=== PATIENT | female | born 1950 | race Caucasian/White ===

== ENCOUNTER 2021-03-18 21:06 | Emergency (ER) | payer OTHER, MEDICAID ==
[~2021-03-18] VITALS: Ht 134.6 cm; Wt 56.6 kg
[2021-03-18 21:06] VITALS: BP 221/77
--- NOTE | 2021-03-18 21:13 | NUR ---
PT TRANSFERRED FROM EMS [facility] TO ER BED 11 VIA EMS STAFF
--- NOTE | 2021-03-18 21:15 | NUR ---
71 yo f biba from home with c/c of bleeding from right upper chest shunt around 2030. bleeding stopped by medics and bandaged. states right upper chest shunt is older, new shunt is on left upper arm. pt denies chest pain, weakness, pain and dizziness. bandage is dry. all needs met at this time. pt on threat monitoring analyst. hx:renal failure, htn, dm rx:labetolol, sevelamer, simvastatin, bumetadine, aspirin, nph, regular insulin allerg:denies Addendum: 03/18/21 at 2208 by [facility] 71 yo f biba from home with c/c of bleeding from right upper chest shunt around 2029. bleeding stopped by medics and bandaged. states right upper chest shunt is older, new shunt is on left upper arm. pt denies chest pain, weakness, pain and dizziness. bandage is dry. all needs met at this time. pt on threat monitoring analyst. hx:renal failure, htn, dm rx:labetolol, sevelamer, simvastatin, bumetadine, aspirin, nph, regular insulin allerg:denies dialysis monday, monday, monday last dialysis yesterday
--- NOTE | 2021-03-18 22:08 | NUR ---
ermd at bedside.
--- NOTE | 2021-03-18 22:12 | NUR ---
bp seen by pili, recieved verbal order to give labtelol 100mg po.
[2021-03-18] MEDS ORDERED: LIDOCAINE MPF 1% 10 MG/ML VIAL INJ ONE (22:40)
[2021-03-18] MEDS ORDERED: CLONIDINE HYDROCHLORIDE 0.1 MG TAB PO ONE (22:45)
--- NOTE | 2021-03-18 23:20 | NUR ---
pt is awake and alert. daughter at bedside. all needs met at this time. pt is in stable condition. side rails x2.
--- NOTE | 2021-03-18 23:27 | NUR ---
ermd at bedside performing procedure.
[2021-03-19 01:22] VITALS: BP 173/59
--- NOTE | 2021-03-19 01:22 | NUR ---
Patient discharged with v/s stable. Written and verbal after care instructions given and explained. Patient verbalized understanding. Ambulatory with steady gait. All questions addressed prior to discharge. Advised to follow up with PMD.
--- NOTE | 2021-03-19 01:38 | NUR ---
Sylvie dailey in EDM - 03/19/21 at 0139 by MARK ANTHONY Patient discharged with v/s stable. Written and verbal after care instructions given and explained. Patient verbalized understanding. Ambulatory with steady gait. All questions addressed prior to discharge. Advised to follow up with PMD.
== END 2021-03-19 01:22 | disposition home or self-care (01) ==
LOC: MED 21:06
DX: T82.838A Hemorrhage due to vascular prosthetic devices, implants and grafts, initial encounter (principal); E08.22 Diabetes mellitus due to underlying condition with diabetic chronic kidney disease; I12.0 Hypertensive chronic kidney disease with stage 5 chronic kidney disease or end stage renal disease; N18.6 End stage renal disease; Z99.2 Dependence on renal dialysis; R06.2 Wheezing; E78.00 Pure hypercholesterolemia, unspecified; Z98.890 Other specified postprocedural states; Y83.1 Surgical operation with implant of artificial internal device as the cause of abnormal reaction of the patient, or of later complication, without mention of misadventure at the time of the procedure
CPT/HCPCS: 99285; J2001